=== PATIENT | female | born 2000 | race Caucasian/White ===

== ENCOUNTER 2022-03-07 21:30 | Inpatient (IN) | payer OTHER ==
[2022-03-07 22:40] LABS: HEMATOCRIT 37.2 % (32.4-45.2); HEMOGLOBIN 11.8 GM/dL (10.7-15.3); LYMPH % 32.7 % (8-40); MCH 24.4 pg (25.7-33.7); MCHC 31.7 g/dl (32.0-36.0); MEAN CELL VOLUME 76.9 fl (80-96); MEAN PLT VOLUME 9.4 fl (7.5-11.1); MONO % 10.2 % (3.8-10.2); NEUT % 55.1 % (42.8-82.8); PLATELET COUNT 140 10^3/uL (134-434); RBC 4.84 M/mm3 (3.60-5.2); RDW 16.4 % (11.6-15.6); WHITE BLOOD COUNT 8.1 K/mm3 (4.0-10.0)
[2022-03-07 22:47] LABS: INR 0.91 (0.83-1.09); PROTHROMBIN TIME (PATIENT) 10.5 SEC (9.7-13.0)
[2022-03-07 22:50] LABS: ACTIVATED PTT 18.5 SECONDS (25.2-36.5)
[2022-03-07 22:53] LABS: EPI CELLS >36 /uL (0-25.1); HYALINE CASTS 1 /uL (0-3.1); URINE APPEARANCE CLEAR; URINE BACTERIA 394 /uL (0-1359); URINE BILIRUBIN NEGATIVE (NEGATIVE); URINE COLOR YELLOW; URINE GLUCOSE (UA) NEGATIVE (NEGATIVE); URINE KETONE NEGATIVE (NEGATIVE); URINE LEUK ESTERASE 1+ (NEGATIVE); URINE NITRITE NEGATIVE (NEGATIVE); URINE PROTEIN 1+ (NEGATIVE); URINE RBC 3 /uL (0-23.9); URINE UROBILINOGEN 0.2 mg/dL (0.2-1.0); URINE WBC 42 /uL (0-25.8)
[2022-03-07 23:01] VITALS: BMI 36.8
[2022-03-07 23:02] LABS: ALBUMIN 2.2 g/dl (3.4-5.0); BLOOD UREA NITROGEN 11.4 mg/dL (7-18); CALCIUM 8.2 mg/dL (8.5-10.1)
[2022-03-07 23:05] LABS: CREATININE 0.9 mg/dL (0.55-1.3)
[2022-03-07 23:07] LABS: BILIRUBIN,TOTAL 0.2 mg/dL (0.2-1)
[2022-03-08] MEDS ORDERED: DINOPROSTONE 10 MG VAGINAL SUPPOSITORY VG ONE (00:44)
[2022-03-08] MEDS ORDERED: LABETALOL HCL 200 MG TABLET (FP) ONE ×2 (01:18→09:28)
[2022-03-08] MEDS: LABETALOL HCL 200 MG TABLET (FP) PO SCH ×3 (01:20→21:54)
[2022-03-08] MEDS: ELECTROLYTE-148 SOLN 1,000 ML IV SCH ×2 (01:20→11:56)
[2022-03-08] MEDS ORDERED: BUTORPHANOL TARTRATE 2 MG/ML VIAL ONE (07:57)
[2022-03-08] MEDS ORDERED: PROMETHAZINE HCL 25 MG/1 ML VIAL ONE (07:57)
[2022-03-08] MEDS ORDERED: PROMETHAZINE HCL 25 MG/1 ML VIAL IVPB ONE ×2 (10:15→16:15)
[2022-03-08] MEDS ORDERED: FENTANYL CITRATE/PF 50 MCG/ML VIAL ONE (10:33)
[2022-03-08] MEDS ORDERED: FENTANYL/BUPIVACAINE/NS/PF - PCEA - 50 ML DISP.SYRIN EP ONE ×3 (10:33→15:38)
[2022-03-08] MEDS ORDERED: BUPIVACAINE HCL/PF 0.25% (2.5MG/ML) 10 ML VIAL ONE (10:33)
[2022-03-08] MEDS: FENTANYL/BUPIVACAINE/NS/PF - PCEA - 50 ML DISP.SYRIN EP SCH (10:50)
[2022-03-08] MEDS ORDERED: AMPICILLIN SODIUM 2 GM VIAL ONE (11:10)
[2022-03-08] MEDS ORDERED: NALOXONE HCL 0.4 MG/ML VIAL IVPUSH PRN (11:40)
[2022-03-08] MEDS ORDERED: AMPICILLIN - 2 GM in SODIUM CHLORIDE 100 ML IVPB ONE (12:00)
[2022-03-08] MEDS ORDERED: OXYTOCIN 30 UNITS in 0.9% NS 30 UNIT/500 ML INFUS.BAG IVPB ONE (12:24)
[2022-03-08] MEDS: OXYTOCIN 30 UNITS in 0.9% NS 30 UNIT/500 ML INFUS.BAG IVPB SCH (12:30)
[2022-03-08] MEDS ORDERED: AMPICILLIN SODIUM 1 GM VIAL ONE (14:54)
[2022-03-08] MEDS: AMPICILLIN - 1 GM in SODIUM CHLORIDE 100 ML IVPB SCH ×2 (15:01→21:54)
[2022-03-08] MEDS ORDERED: OXYTOCIN 20 UNITS in 0.9% NS 20 UNIT/1,000 ML INFUS.BAG IV ONE (16:07)
[2022-03-08] MEDS ORDERED: LIDOCAINE HCL 1% PRESERVATIVE FREE - 30ML VIAL ONE (16:07)
[2022-03-08] MEDS ORDERED: BUTORPHANOL TARTRATE 2 MG/ML VIAL IVPB ONE (16:15)
[2022-03-08] MEDS ORDERED: IBUPROFEN 600 MG TABLET (FP) PO ONE (17:18)
[2022-03-08] MEDS: IBUPROFEN 600 MG TABLET (FP) PO PRN (17:22)
[2022-03-08] MEDS ORDERED: ACETAMINOPHEN 325 MG TABLET (FP) PO PRN (17:42)
[2022-03-08] MEDS ORDERED: METHYLERGONOVINE MALEATE 0.2 MG/1 ML AMP IM PRN (17:42)
[2022-03-08] MEDS ORDERED: BENZOCAINE 20% 57 GM BOTTLE TP PRN (17:42)
[2022-03-08] MEDS ORDERED: BENZOCAINE 28 GM HEMORRHOIDAL OINTMENT TP PRN (17:42)
[2022-03-08] MEDS ORDERED: oxyCODONE HCL 5 MG TABLET PO PRN (17:42)
[2022-03-08] MEDS ORDERED: WITCH HAZEL 50% (TUCKS) 40 PAD/JAR PAD TP PRN (17:42)
[2022-03-08] MEDS ORDERED: BISACODYL 10 MG SUPP.RECT RC PRN (17:42)
[2022-03-08] MEDS ORDERED: OXYTOCIN 20 UNITS in 0.9% NS 20 UNIT/1,000 ML INFUS.BAG IV SCH (17:45)
[2022-03-08 18:09] LABS: CORD BASE EXCESS -6.7 mmol/L (0-2); CORD HCO3 20.9 mmHg (20-29); CORD PCO2 49.8 mmHg (30-78); CORD pH 7.24 (7.14-7.44)
[2022-03-08 18:10] LABS: CORD BASE EXCESS -6.6 mmol/L (0-2); CORD HCO3 22.9 mmHg (20-29); CORD PCO2 64.1 mmHg (30-78); CORD pH 7.17 (7.14-7.44)
[2022-03-08] MEDS ORDERED: NIFEdipine E.R. 30 MG TABLET PO ONE ×2 (19:19→19:30)
[2022-03-09] MEDS: AMPICILLIN - 1 GM in SODIUM CHLORIDE 100 ML IVPB SCH ×3 (03:07→20:38)
[2022-03-09] MEDS: IBUPROFEN 600 MG TABLET (FP) PO PRN ×2 (04:38→16:05)
[2022-03-09 06:42] LABS: BASO % 0.2 % (0-2.0); HEMATOCRIT 26.2 % (32.4-45.2); HEMOGLOBIN 8.4 GM/dL (10.7-15.3); LYMPH % 13.1 % (8-40); MCH 24.4 pg (25.7-33.7); MCHC 31.9 g/dl (32.0-36.0); MEAN CELL VOLUME 76.5 fl (80-96); MEAN PLT VOLUME 9.1 fl (7.5-11.1); NEUT % 80.7 % (42.8-82.8); PLATELET COUNT 136 10^3/uL (134-434); RBC 3.43 M/mm3 (3.60-5.2); RDW 16.6 % (11.6-15.6); WHITE BLOOD COUNT 15.7 K/mm3 (4.0-10.0)
[2022-03-09] MEDS: NIFEdipine E.R. 30 MG TABLET PO SCH (10:44)
[2022-03-09] MEDS: PRENATAL VITAMINS W/ FOLIC ACID TABLET (FP) PO SCH (10:44)
[2022-03-09 13:50] VITALS: RESP 18
[2022-03-09] MEDS: FERROUS SO4 325 MG TABLET (FP) PO SCH (18:05)
[2022-03-09] MEDS: FENTANYL/BUPIVACAINE/NS/PF - PCEA - 50 ML DISP.SYRIN EP SCH (20:37)
[2022-03-09] MEDS: OXYTOCIN 30 UNITS in 0.9% NS 30 UNIT/500 ML INFUS.BAG IVPB SCH (20:39)
[2022-03-09] MEDS: ELECTROLYTE-148 SOLN 1,000 ML IV SCH (20:39)
[2022-03-09] MEDS ORDERED: SENNOSIDES/DOCUSATE COMBO (SENNA PLUS) TABLET (UD) PO PRN (22:00)
[2022-03-10] MEDS: IBUPROFEN 600 MG TABLET (FP) PO PRN (03:10)
[2022-03-10] MEDS: FERROUS SO4 325 MG TABLET (FP) PO SCH (09:00)
[2022-03-10 10:00] VITALS: BP 122/86; PULSE 109; TEMP 98.2
[2022-03-10] MEDS: NIFEdipine E.R. 30 MG TABLET PO SCH (10:07)
[2022-03-10] MEDS: PRENATAL VITAMINS W/ FOLIC ACID TABLET (FP) PO SCH (10:08)
== END 2022-03-10 13:20 | disposition home or self-care (01) | DRG 560 ==
LOC: JDEL 21:30 → JLDR 22:00 → J3W 03-08 20:02
PROVIDERS: ADMIT Obstetrics & Gynecology; ATTEND Obstetrics & Gynecology
PROC: 3E0P7VZ Introduction of Hormone into Female Reproductive, Via Natural or Artificial Opening (ICD-10-PCS; principal; 2022-03-08)
PROC: 10907ZC Drainage of Amniotic Fluid, Therapeutic from Products of Conception, Via Natural or Artificial Opening (ICD-10-PCS; 2022-03-08)
PROC: 10E0XZZ Delivery of Products of Conception, External Approach (ICD-10-PCS; 2022-03-08)
PROC: 0W8NXZZ Division of Female Perineum, External Approach (ICD-10-PCS; 2022-03-08)
PROC: 3E033VJ Introduction of Other Hormone into Peripheral Vein, Percutaneous Approach (ICD-10-PCS; 2022-03-08)
DX: O14.04 Mild to moderate pre-eclampsia, complicating childbirth (principal); Z3A.40 40 weeks gestation of pregnancy; Z37.0 Single live birth
CPT/HCPCS: 36415; 36600; 59409; 76819-TC; 80053; 81003; 82570; 82803; 84156; 85025; 85610; 85730; 86780; 86850; 86900; 86901; C9803-CS; U0003; U0005